=== PATIENT | male | born 1960 | race Caucasian/White ===

== ENCOUNTER 2019-05-31 08:38 | Outpatient (CLI) | payer MEDICARE ==
[~2019-05-31 08:38] MED LIST: FERUMOXYTOL (NON-ESRD) 510 MG/NS 100 ML IV PRN; NORMAL SALINE 250 ML IV PRN
[2019-05-31 09:33] VITALS: BP 128/69
== END 2019-05-31 10:02 | disposition home or self-care (01) ==
LOC: II 08:38 → 5TH 08:41 → II 10:02
PROVIDERS: ATTEND Internal Medicine Hematology & Oncology
PROC: 3E033GC Introduction of Other Therapeutic Substance into Peripheral Vein, Percutaneous Approach (ICD-10-PCS; principal; 2019-05-31)
DX: D50.9 Iron deficiency anemia, unspecified (principal); K90.9 Intestinal malabsorption, unspecified
CPT/HCPCS: 96365; Q0138; J7050

== ENCOUNTER 2019-06-07 08:34 | Outpatient (CLI) | payer MEDICARE ==
[2019-06-07 08:55] VITALS: BP 139/76
== END 2019-06-07 10:56 | disposition home or self-care (01) ==
LOC: II 08:34 → 5TH 08:36 → II 10:56
PROVIDERS: ATTEND Internal Medicine Hematology & Oncology
PROC: 3E033GC Introduction of Other Therapeutic Substance into Peripheral Vein, Percutaneous Approach (ICD-10-PCS; principal; 2019-06-07)
DX: D50.9 Iron deficiency anemia, unspecified (principal)
CPT/HCPCS: 96365; Q0138; J7050

== ENCOUNTER 2019-08-10 07:50 | Outpatient (CLI) | payer MEDICARE ==
[~2019-08-10 07:50] MED LIST changes: -FERUMOXYTOL (NON-ESRD) 510 MG/NS 100 ML IV PRN; +FERUMOXYTOL 510 MG in NORMAL SALINE 100 ML IV PRN
[2019-08-10 08:04] VITALS: BP 127/77
== END 2019-08-10 09:10 | disposition home or self-care (01) ==
LOC: II 07:50 → 5TH 07:54 → II 09:10
PROVIDERS: ATTEND Internal Medicine Hematology & Oncology
PROC: 3E033GC Introduction of Other Therapeutic Substance into Peripheral Vein, Percutaneous Approach (ICD-10-PCS; principal; 2019-08-10)
DX: D50.9 Iron deficiency anemia, unspecified (principal); K90.9 Intestinal malabsorption, unspecified
CPT/HCPCS: 96365; Q0139; J7050

== ENCOUNTER 2019-08-18 07:50 | Outpatient (CLI) | payer MEDICARE ==
[~2019-08-18 07:50] MED LIST changes: +FERUMOXYTOL (NON-ESRD) 510 MG/NS 100 ML IV PRN; -FERUMOXYTOL 510 MG in NORMAL SALINE 100 ML IV PRN
[2019-08-18 08:13] VITALS: BP 127/73
== END 2019-08-18 08:55 | disposition home or self-care (01) ==
LOC: II 07:50 → 5TH 07:54 → II 08:55
PROVIDERS: ATTEND Internal Medicine Hematology & Oncology
PROC: 3E033GC Introduction of Other Therapeutic Substance into Peripheral Vein, Percutaneous Approach (ICD-10-PCS; principal; 2019-08-18)
DX: D50.9 Iron deficiency anemia, unspecified (principal); K90.9 Intestinal malabsorption, unspecified
CPT/HCPCS: 96365; Q0138 ×2; J7050 ×2

== ENCOUNTER 2019-09-20 10:54 | Emergency (ER) | payer MEDICARE ==
--- NOTE | 2019-09-20 11:19 | ER Document Report ---
ED Medical Screen (RME) - General Chief Complaint: Dizziness Stated Complaint: DIZZINESS Time Seen by Provider: 09/20/19 11:14 Mode of Arrival: Ambulatory Information source: Patient Notes: 59-year-old male with history of iron deficiency and transfusions presents today with feelings of fatigue dizziness. He reports for the past 6 months he has had the symptoms. He has had 5 iron transfusions. He reports he will feel good afterwards for a week or 2 and then his symptoms returned. He reports last iron transfusion was 2 weeks ago on the fifth floor. He denies chest pain. Denies shortness of breath. Reports he just feels really dizzy and fatigued. I have greeted and performed a rapid initial assessment of this patient. A comprehensive ED assessment and evaluation of the patient, analysis of test results and completion of the medical decision making process will be conducted by additional ED providers. Dictation of this chart was performed using voice recognition software; therefore, there may be some unintended grammatical errors. TRAVEL OUTSIDE OF THE [place] IN LAST 30 DAYS: No - Related Data Allergies/Adverse Reactions: acetaminophen [From Percocet] Allergy (Verified 05/30/19 15:41) metaxalone [From Skelaxin] Allergy (Verified 05/30/19 15:41) oxycodone [From Percocet] Allergy (Verified 05/30/19 15:41) Past Medical History - Social History Chew tobacco use (# tins/day): No Frequency of alcohol use: None Drug Abuse: None
[2019-09-20 11:58] LABS: ABSOLUTE BASOPHILS # (AUTO) 0.1 10^3/uL (0.0-0.2); ABSOLUTE EOSINOPHILS # (AUTO) 0.4 10^3/uL (0.0-0.6); ABSOLUTE LYMPHOCYTES (AUTO) 1.4 10^3/uL (0.5-4.7); ABSOLUTE MONOCYTES (AUTO) 0.6 10^3/uL (0.1-1.4); ABSOLUTE NEUT (AUTO) 6.9 10^3/uL (1.7-8.2); BASOPHILS % (AUTO) 0.7 % (0-2); EOSINOPHILS % (AUTO) 4.5 % (0-6); HEMATOCRIT 46.5 % (37.9-51.0); HEMOGLOBIN 15.8 g/dL (13.5-17.0); LYMPHOCYTES % (AUTO) 15.3 % (13-45); MEAN CORPUSCULAR HEMOGLOBIN 30.9 pg (27.0-33.4); MEAN CORPUSCULAR HGB CONC 33.9 g/dL (32.0-36.0); MEAN CORPUSCULAR VOLUME 91 fl (80-97); MONOCYTES % (AUTO) 6.9 % (3-13); PLATELET COUNT 154 10^3/uL (150-450); RED BLOOD COUNT 5.12 10^6/uL (4.35-5.55); RED CELL DISTRIBUTION WIDTH 15.3 % (11.5-14.0); SEGMENTED NEUTROPHILS % (AUTO) 72.6 % (42-78); TOTAL CELLS COUNTED % (AUTO) 100 %; WHITE BLOOD COUNT 9.4 10^3/uL (4.0-10.5)
[2019-09-20 12:02] LABS: APPEARANCE,URINE CLEAR; BILIRUBIN,URINE NEGATIVE (NEGATIVE); COLOR,URINE YELLOW; GLUCOSE, URINE >=500 mg/dL (NEGATIVE); KETONES,URINE NEGATIVE (NEGATIVE); LEUKOCYTE ESTERASE,URINE NEGATIVE (NEGATIVE); NITRITE,URINE NEGATIVE (NEGATIVE); PROTEIN,URINE NEGATIVE (NEGATIVE); URINE SPECIFIC GRAVITY 1.026
[2019-09-20 12:03] LABS: ABSOLUTE RETICS # 0.096 10^6/uL (0.028-0.122); RETICULOCYTE COUNT (AUTO) 1.87 % (0.66-2.85)
[2019-09-20 12:21] LABS: ALBUMIN 4.4 g/dL (3.5-5.0); ALKALINE PHOSPHATASE 51 U/L (38-126); ANION GAP 11 (5-19); ASPARTATE AMINO TRANSFERASE 22 U/L (17-59); BILIRUBIN,DIRECT 0.1 mg/dL (0.0-0.4); BILIRUBIN,TOTAL 1.2 mg/dL (0.2-1.3); BLOOD UREA NITROGEN 18 mg/dL (7-20); CALCIUM 9.9 mg/dL (8.4-10.2); CARBON DIOXIDE 32 mmol/L (22-30); CHLORIDE 100 mmol/L (98-107); GLUCOSE 114 mg/dL (75-110); POTASSIUM 4.6 mmol/L (3.6-5.0); TOTAL PROTEIN 7.4 g/dL (6.3-8.2)
[2019-09-20 12:23] LABS: IRON(TIBC) 82.4 ug/dL (49-181)
--- NOTE | 2019-09-20 12:44 | EKG REPORT ---
SEVERITY:- NORMAL ECG - SINUS RHYTHM : Confirmed by: Dagoberto Rose MD 20-Sep-2019 12:43:50
[2019-09-20] MEDS ORDERED: MECLIZINE HCL 12.5 MG TABLET PO ONE (15:34)
--- NOTE | 2019-09-20 16:14 | ER Document Report ---
ED General - General Chief Complaint: Dizziness Stated Complaint: DIZZINESS Time Seen by Provider: 09/20/19 11:14 Primary Care Provider: DELMER BROWN MD [Primary Care Provider] - Follow up as needed Mode of Arrival: Ambulatory Notes: RME NOTE: 59-year-old male with history of iron deficiency and transfusions presents today with feelings of fatigue dizziness. He reports for the past 6 months he has had the symptoms. He has had 5 iron transfusions. He reports he will feel good afterwards for a week or 2 and then his symptoms returned. He reports last iron transfusion was 2 weeks ago on the fifth floor. He denies chest pain. Denies shortness of breath. Reports he just feels really dizzy and fatigued. MY HPI: Patient voices his dizziness is like he is "putting my head in a fish bowl." Patient's blood sugar was noted to be slightly decreased at today's visit. He was given something to eat and states he overall feels "better." Discussed with patient keeping a close eye on his sugars over the next couple of days. Patient also voices a history of vertigo. States he was given Valium in the past. Patient is denying any chest pain, lightheadedness, unilateral weakness, ge neralized weakness, shortness of breath. Patient voices "crickets in my ears." States from time to time he does have a "weird sensation in his ears that makes me dizzy." TRAVEL OUTSIDE OF THE [place] IN LAST 30 DAYS: No - Related Data Allergies/Adverse Reactions: acetaminophen [From Percocet] Allergy (Verified 05/30/19 15:41) metaxalone [From Skelaxin] Allergy (Verified 05/30/19 15:41) oxycodone [From Percocet] Allergy (Verified 05/30/19 15:41) IV contrast dye Allergy (Uncoded 09/20/19 15:05) Past Medical History - General Information source: Patient - Social History Smoking Status: Never Smoker Chew tobacco use (# tins/day): No Frequency of alcohol use: None Drug Abuse: None Family History: Reviewed & Not Pertinent Patient has suicidal ideation: No Patient has homicidal ideation: No - Past Medical History Cardiac Medical History: Reports: Hx Hypertension Endocrine Medical History: Reports: Hx Diabetes Mellitus Type 2 Past Surgical History: Reports: Hx Orthopedic Surgery, Hx Tonsillectomy Review of Systems - Review of Systems Constitutional: denies: Fever EENT: No symptoms reported Cardiovascular: See HPI Respiratory: See HPI Gastrointestinal: See HPI Genitourinary: No symptoms reported Male Genitourinary: No symptoms reported Musculoskeletal: No symptoms reported Skin: No symptoms reported Hematologic/Lymphatic: See HPI Neurological/Psychological: See HPI Physical Exam - Vital signs Vitals: Temp Pulse Resp BP Pulse Ox 98.0 F 96 18 138/74 H 95 09/20/19 11:07 09/20/19 11:07 09/20/19 11:07 09/20/19 11:07 09/20/19 11:07 - Notes Notes: GENERAL: Alert, interacts well. No acute distress. HEAD: Normocephalic, atraumatic. EYES: Pupils equal, round, and reactive to light. Extraocular movements intact. ENT: Oral mucosa moist, tongue midline. TMs intact, nonerythematous, nonbulging bilaterally. NECK: Full range of motion. Supple. Trachea midline. LUNGS: Clear to auscultation bilaterally, no wheezes, rales, or rhonchi. No respiratory distress. HEART: Regular rate and rhythm. No murmur ABDOMEN: Soft, non-tender. Non-distended. Bowel sounds present in all 4 quadrants. EXTREMITIES: Moves all 4 extremities spontaneously. No edema, normal radial and dorsalis pedis pulses bilaterally. No cyanosis. BACK: no cervical, thoracic, lumbar midline tenderness. No saddle anesthesia, normal distal neurovascular exam. NEUROLOGICAL: Alert and oriented x3. Normal speech. cranial nerves II through XII grossly intact PSYCH: Normal affect, normal mood. SKIN: Warm, dry, normal turgor. No rashes or lesions noted. Course - Re-evaluation Re-evalutation: 09/20/19 16:20 Rebekah-Hallpike maneuver noted nystagmus when patient's head was turned to the r ight. Patient voices "I feel horrible." Patient voices this movement did make him more dizzy. Discussed likely diagnosis of vertigo need to follow-up with Dr. Brown. Also discussed use of Antivert. Discussed continued evaluation of the patient's blood sugars until follow-up with Dr. Brown. Labs show no signs of anemia, Laboratory 09/20/19 09/20/19 09/20/19 11:35 11:35 11:35 WBC 9.4 RBC 5.12 Hgb 15.8 Hct 46.5 MCV 91 MCH 30.9 MCHC 33.9 RDW 15.3 H Plt Count 154 Lymph % (Auto) 15.3 Brown % (Auto) 6.9 Eos % (Auto) 4.5 Baso % (Auto) 0.7 Reticulocyte # 0.096 Absolute Neuts (auto) 6.9 Absolute Lymphs (auto) 1.4 Absolute Monos (auto) 0.6 Absolute Eos (auto) 0.4 Absolute Basos (auto) 0.1 Seg Neutrophils % 72.6 Retic Count (auto) 1.87 Sodium Potassium Chloride Carbon Dioxide Anion Gap BUN Creatinine Est GFR ( Amer) Est GFR (MDRD) Non-Af Glucose POC Glucose Calcium Iron 82.4 TIBC 332 % Saturation 25 Ferritin 41.70 Total Bilirubin Direct Bilirubin Neonat Total Bilirubin Neonat Direct Bilirubin Neonat Indirect Bili AST ALT Alkaline Phosphatase Total Protein Albumin Vitamin B12 673.0 Folate 13.10 Urine Color Urine Appearance Urine pH Ur Specific [place] Urine Protein Urine Glucose (UA) Urine Ketones Urine Blood Urine Nitrite Urine Bilirubin Urine Urobilinogen Ur Leukocyte Esterase Urine WBC (Auto) Urine RBC (Auto) Urine Mucus (Auto) Urine Ascorbic Acid 09/20/19 09/20/19 09/20/19 11:35 11:35 14:18 WBC RBC Hgb Hct MCV MCH MCHC RDW Plt Count Lymph % (Auto) Brown % (Auto) Eos % (Auto) Baso % (Auto) Reticulocyte # Absolute Neuts (auto) Absolute Lymphs (auto) Absolute Monos (auto) Absolute Eos (auto) Absolute Basos (auto) Seg Neutrophils % Retic Count (auto) Sodium 142.5 Potassium 4.6 Chloride 100 Carbon Dioxide 32 H Anion Gap 11 BUN 18 Creatinine 0.96 Est GFR ( Amer) > 60 Est GFR (MDRD) Non-Af > 60 Glucose 114 H POC Glucose 55 L Calcium 9.9 Iron TIBC % Saturation Ferritin Total Bilirubin 1.2 Direct Bilirubin 0.1 Neonat Total Bilirubin Not Reportable Neonat Direct Bilirubin Not Reportable Neonat Indirect Bili Not Reportable AST 22 ALT 16 Alkaline Phosphatase 51 Total Protein 7.4 Albumin 4.4 Vitamin B12 Folate Urine Color YELLOW Urine Appearance CLEAR Urine pH 7.0 Ur Specific [place] 1.026 Urine Protein NEGATIVE Urine Glucose (UA) >=500 H Urine Ketones NEGATIVE Urine Blood NEGATIVE Urine Nitrite NEGATIVE Urine Bilirubin NEGATIVE Urine Urobilinogen 4.0 H Ur Leukocyte Esterase NEGATIVE Urine WBC (Auto) 1 Urine RBC (Auto) 1 Urine Mucus (Auto) RARE Urine Ascorbic Acid NEGATIVE 09/20/19 14:50 WBC RBC Hgb Hct MCV MCH MCHC RDW Plt Count Lymph % (Auto) Brown % (Auto) Eos % (Auto) Baso % (Auto) Reticulocyte # Absolute Neuts (auto) Absolute Lymphs (auto) Absolute Monos (auto) Absolute Eos (auto) Absolute Basos (auto) Seg Neutrophils % Retic Count (auto) Sodium Potassium Chloride Carbon Dioxide Anion Gap BUN Creatinine Est GFR ( Amer) Est GFR (MDRD) Non-Af Glucose POC Glucose 81 Calcium Iron TIBC % Saturation Ferritin Total Bilirubin Direct Bilirubin Neonat Total Bilirubin Neonat Direct Bilirubin Neonat Indirect Bili AST ALT Alkaline Phosphatase Total Protein Albumin Vitamin B12 Folate Urine Color Urine Appearance Urine pH Ur Specific [place] Urine Protein Urine Glucose (UA) Urine Ketones Urine Blood Urine Nitrite Urine Bilirubin Urine Urobilinogen Ur Leukocyte Esterase Urine WBC (Auto) Urine RBC (Auto) Urine Mucus (Auto) Urine Ascorbic Acid 09/20/19 16:22 Patient stable for discharge - Vital Signs Vital signs: Temp Pulse Resp BP Pulse Ox 98.0 F 96 18 138/74 H 95 09/20/19 11:07 09/20/19 11:07 09/20/19 11:07 09/20/19 11:07 09/20/19 11:07 - Laboratory Result Diagrams: 09/20/19 11:35 09/20/19 11:35 Laboratory results interpreted by me: 09/20/19 09/20/19 09/20/19 11:35 11:35 11:35 RDW 15.3 H Carbon Dioxide 32 H Glucose 114 H POC Glucose Urine Glucose (UA) >=500 H Urine Urobilinogen 4.0 H 09/20/19 14:18 RDW Carbon Dioxide Glucose POC Glucose 55 L Urine Glucose (UA) Urine Urobilinogen Discharge - Discharge Clinical Impression: Vertigo, Hypoglycemia Condition: Stable Disposition: HOME, SELF-CARE Instructions: Vertigo ([facility]), Dizziness ([facility]), Meclizine ([facility]), Hypoglycemia ([facility]) Additional Instructions: As we discussed you have been seen and treated in the emergency department for potential vertigo. Please make sure he follow-up with Dr. Brown in the next 12 to 24 hours. Please also make sure you keep a close eye on your blood sugars. Please return to the emergency department for any concerns. Prescriptions: Meclizine HCl 25 mg PO BID PRN #[id number] tab.chew PRN Reason: Referrals: DELMER BROWN MD [Primary Care Provider] - Follow up as needed
[2019-09-20 16:59] VITALS: BP 130/80
== END 2019-09-20 16:45 | disposition home or self-care (01) ==
LOC: ER 10:54
DX: R42 Dizziness and giddiness (principal); E11.649 Type 2 diabetes mellitus with hypoglycemia without coma; R53.83 Other fatigue; I10 Essential (primary) hypertension; Z88.5 Allergy status to narcotic agent; Z88.8 Allergy status to other drugs, medicaments and biological substances; Z91.041 Radiographic dye allergy status; Z86.2 Personal history of diseases of the blood and blood-forming organs and certain disorders involving the immune mechanism
CPT/HCPCS: 93005; 36415; 82962; 82607; 82728; 82746; 83540; 83550; 85025; 85045; 80053; 81001; 93010; A9270; 99284; J3490

== ENCOUNTER 2019-10-17 08:05 | Emergency (ER) | payer MEDICARE ==
--- NOTE | 2019-10-17 08:30 | ER Document Report ---
ED Fall - General Chief Complaint: Fall Injury Stated Complaint: FALL/LEFT ARM PAIN Time Seen by Provider: 10/17/19 08:21 Primary Care Provider: DELMER BROWN MD [Primary Care Provider] - Follow up as needed Notes: 59-year-old male who fell in his garden a week ago. He fell onto his left side he denies loss of consciousness states he simply lost his balance on the concrete. States his left shoulder has been bothering him for the last week he had hoped it would gone away he is been taking Motrin and Tylenol but still having mild to moderate achy pain worse with movement. He denies any numbness or tingling in his hand. Denies chest pain denies shortness of breath. Denies headache or blurred vision. Denies extremity numbness tingling or weakness. TRAVEL OUTSIDE OF THE [place] IN LAST 30 DAYS: No - Related data Allergies/Adverse Reactions: acetaminophen [From Percocet] Allergy (Verified 05/30/19 15:41) metaxalone [From Skelaxin] Allergy (Verified 05/30/19 15:41) oxycodone [From Percocet] Allergy (Verified 05/30/19 15:41) IV contrast dye Allergy (Uncoded 09/20/19 15:05) Past Medical History - Social History Smoking Status: Former Smoker Family History: Reviewed & Not Pertinent Patient has suicidal ideation: No Patient has homicidal ideation: No - Past Medical History Cardiac Medical History: Reports: Hx Hypertension Endocrine Medical History: Reports: Hx Diabetes Mellitus Type 2 Past Surgical History: Reports: Hx Orthopedic Surgery, Hx Tonsillectomy Review of Systems - Review of Systems Constitutional: denies: Chills, Fever Musculoskeletal: Joint pain -: Yes All other systems reviewed and negative Physical Exam - Vital signs Vitals: Temp Pulse BP Pulse Ox 97.5 F 91 164/90 H 96 10/17/19 08:08 10/17/19 08:08 10/17/19 08:08 10/17/19 08:08 - Notes Notes: GENERAL_APPEARANCE: well_nourished, alert, cooperative, no_acute_distress, no_obvious_discomfort. VITALS: reviewed, see vital signs table. HEAD: no_swelling\tenderness on the head. EYES: PERRL, EOMI, conjunctiva_clear. NOSE: no_nasal_discharge. MOUTH: (-)decreased moisture. THROAT: no_tonsilar_inflammation, no_airway_obstruction. no_lymphadenopathy NECK: supple, no_neck_tenderness, (-)thyromegaly. BACK: no_back_tenderness. CHEST_WALL: no_chest_tenderness. LUNGS: no_wheezing, no_rales, no_rhonchi, (-)accessory muscle use, good air exchange bilateral. HEART: normal_rate, normal_rhythm, normal_S1, normal_S2, (-)S3, (-)S4, no_murmur, no_rub. ABDOMEN: soft, no_abd_tenderness, (-)guarding, (-)rebound, no_organomegaly, no_abd_masses. EXTREMITIES: Pain at the left shoulder mild swelling and bruising, pulses intact left hand, brisk capillary refill of fingertips no_edema. SKIN: warm, dry, good_color, no_rash. MENTAL_STATUS: speech_clear, oriented_X_3, normal_affect, responds_appropriately to questions. NEURO: Neg Motor or Sensory Deficits on exam, CN 2-12 intact, DTR 2+ symmetric x 4, No cerbellar signs Course - Re-evaluation Re-evalutation: 10/17/19 08:30 Elderly male who fell in his garden complains of left shoulder pain we will get an x-ray to assess for humeral head fractures. He has good pulse motor or sensory distal. Denies any other complaints no chest pain or shortness of breath no syncope no head injury. No neck pain. 10/17/19 09:55 Went back and palpated the area of the AC joint. And there is tenderness there there appears to be a space on the x-ray that was not necessarily commented on by radiology. I stated there is some arthropathy there but the space looks to be about 1/4 inch. This seems to be more than I would expect. He is tender there. We will place the patient in a sling and have him follow-up with orthopedics for AC separation. There is no fractures noted [id number] pain medicine as needed - Vital Signs Vital signs: Temp Pulse Resp BP Pulse Ox 97.5 F 91 164/90 H 96 10/17/19 08:08 10/17/19 08:08 10/17/19 08:08 10/17/19 08:08 - Diagnostic Test Radiology reviewed: Image reviewed, Reports reviewed Radiology results interpreted by me: 10/17/19 09:54 Shoulder X-Ray 10/17/19 00:00 IMPRESSION: No acute bony abnormality. Mild acromioclavicular Osteoarthropathy. I have reviewed the x-ray myself looks to be a space between the acromioclavicular joint this may be a mild separation. Discharge - Discharge Clinical Impression: AC separation Qualifiers: Encounter type: initial encounter Laterality: left Qualified Code(s): S43.102A - Unspecified dislocation of left acromioclavicular joint, initial encounter Condition: Good Disposition: HOME, SELF-CARE Instructions: Shoulder Injury ([facility]) Additional Instructions: Call Dr. Dowling for follow-up appointment Referrals: DELMER BROWN MD [Primary Care Provider] - Follow up as needed ALONA DOWLING MD [ACTIVE STAFF] - Follow up as needed
--- NOTE | 2019-10-17 09:02 | RADIOLOGY REPORT (SQ) ---
EXAM DESCRIPTION: SHOULDER LEFT 2 OR MORE VIEWS COMPLETED DATE/TIME: 10/17/2019 8:41 am REASON FOR STUDY: Fall onto shoulder COMPARISON: None. NUMBER OF VIEWS: Three views. TECHNIQUE: Internal rotation, external rotation, and Y view images acquired of the left shoulder. LIMITATIONS: None. FINDINGS: MINERALIZATION: Normal. BONES: No acute fracture. No worrisome bone lesions. JOINTS: No dislocation. Acromioclavicular osteoarthropathy mild superior projecting osteophytes. VISUALIZED LUNGS AND RIBS: No pneumothorax. No rib fracture. SOFT TISSUES: No radiopaque foreign body. OTHER: No other significant finding. IMPRESSION: No acute bony abnormality. Mild acromioclavicular Osteoarthropathy. TECHNICAL DOCUMENTATION: JOB ID: [id number] [employer]- All Rights Reserved Reading location - IP/workstation name: [email or web address]
[2019-10-17] MEDS ORDERED: IBUPROFEN 600 MG TABLET PO ONE (10:04)
[2019-10-17 10:05] VITALS: BP 134/64
== END 2019-10-17 10:10 | disposition home or self-care (01) ==
LOC: ER 08:05
DX: S43.102A Unspecified dislocation of left acromioclavicular joint, initial encounter (principal); I10 Essential (primary) hypertension; W18.30XA Fall on same level, unspecified, initial encounter; Y92.007 Garden or yard of unspecified non-institutional (private) residence as the place of occurrence of the external cause; E11.9 Type 2 diabetes mellitus without complications; Z88.6 Allergy status to analgesic agent; Z91.040 Latex allergy status
CPT/HCPCS: 99283; 73030; L3650; A9270

== ENCOUNTER → 2019-10-30 | Outpatient (CLI) | payer MEDICARE ==
--- NOTE | 2019-10-30 11:00 | RADIOLOGY REPORT (SQ) ---
EXAM DESCRIPTION: ELBOW LEFT OVER 2 VIEWS COMPLETED DATE/TIME: 10/30/2019 9:06 am REASON FOR STUDY: M25.522 PAIN IN LEFT ELBOW M25.512 PAIN IN LEFT SHOULDER M25.522 PAIN IN LEFT EL BOW COMPARISON: None. NUMBER OF VIEWS: Four view. TECHNIQUE: AP, lateral, and both oblique radiographic images acquired of the left elbow. LIMITATIONS: None. FINDINGS: MINERALIZATION: Normal. BONES: No acute fracture or dislocation. No worrisome bone lesions. Osteophytes anteriorly. JOINT: No effusions. SOFT TISSUES: No soft tissue swelling. No foreign body. OTHER: No other significant finding. IMPRESSION: Degenerative changes. No acute findings. TECHNICAL DOCUMENTATION: JOB ID: [id number] [employer]- All Rights Reserved. Reading location - IP/workstation name: [email or web address]
--- NOTE | 2019-10-30 11:01 | RADIOLOGY REPORT (SQ) ---
EXAM DESCRIPTION: SHOULDER LEFT 2 OR MORE VIEWS COMPLETED DATE/TIME: 10/30/2019 9:06 am REASON FOR STUDY: M25.512 PAIN IN LEFT SHOULDER M25.512 PAIN IN LEFT SHOULDER M25.522 PAIN IN LEFT ELBOW COMPARISON: None. NUMBER OF VIEWS: Three views. TECHNIQUE: Internal rotation, external rotation, and Y view images acquired of the left shoulder. LIMITATIONS: None. FINDINGS: MINERALIZATION: Normal. BONES: No acute fracture. No worrisome bone lesions. JOINTS: No dislocation. VISUALIZED LUNGS AND RIBS: No pneumothorax. No rib fracture. SOFT TISSUES: No radiopaque foreign body. OTHER: No other significant finding. IMPRESSION: NEGATIVE STUDY OF THE LEFT SHOULDER. NO RADIOGRAPHIC EVIDENCE OF ACUTE INJURY. TECHNICAL DOCUMENTATION: JOB ID: [id number] [employer]- All Rights Reserved Reading location - IP/workstation name: [email or web address]
== END ==
LOC: RAD 08:28
PROVIDERS: ATTEND Family Medicine
DX: M25.512 Pain in left shoulder (principal); M25.522 Pain in left elbow

== ENCOUNTER 2020-07-10 08:48 | Outpatient (CLI) | payer MEDICARE ==
[2020-07-10 08:58] VITALS: BP 125/82
[2020-07-10] MEDS ORDERED: NORMAL SALINE 250 ML IV PRN (09:30)
[2020-07-10] MEDS ORDERED: FERUMOXYTOL 510 MG in NORMAL SALINE 100 ML IV PRN (09:30)
== END 2020-07-10 10:39 | disposition home or self-care (01) ==
LOC: II 08:48 → 5TH 08:51 → II 10:39
PROVIDERS: ATTEND Internal Medicine Hematology & Oncology
DX: D50.9 Iron deficiency anemia, unspecified (principal); K90.9 Intestinal malabsorption, unspecified
CPT/HCPCS: 96365; Q0138; J7050

== ENCOUNTER 2020-07-17 08:33 | Outpatient (CLI) | payer MEDICARE ==
[2020-07-17 09:32] VITALS: BP 120/71
== END 2020-07-17 09:30 | disposition home or self-care (01) ==
LOC: II 08:33 → 5TH 08:35 → II 09:30
PROVIDERS: ATTEND Internal Medicine Hematology & Oncology
DX: D50.9 Iron deficiency anemia, unspecified (principal); K90.9 Intestinal malabsorption, unspecified
CPT/HCPCS: 96365; Q0138; J7050

== ENCOUNTER 2020-09-19 10:30 | Day surgery (SDC) | payer MEDICARE ==
[2020-09-19] MEDS ORDERED: PROPOFOL INJ 200 MG/20 ML VIAL IV ONE ×3 (11:02→12:32)
[2020-09-19 13:09] VITALS: BP 126/80
--- NOTE | 2020-09-19 14:13 | Operative Report ---
Operative Report DATE OF SURGERY: 09/19/20 Operative Report: The risk, benefits and alternatives of the procedure including the risks of bleeding, perforation requiring surgery have been explained to the patient in detail and informed consent has been obtained. Patient is placed in the left, lateral decubital position. Timeout was called. Propofol medication is administered. Rectal examination is done which did not reveal any masses, tears or fissures. An Olympus videoscope was introduced into the patient's rectum and subsequently advanced all the way to the cecum unfortunately the prep was not good. The mucosa was covered with fecal material and irrigation did not help to uncover for good visualization. The scope was then sequentially pulled back via the various segments of the colon including the ascending colon, hepatic flexure, transverse colon, splenic flexure, descending colon finally into the rectosigmoid portions of the colon. Retroflexion maneuver is performed. The risks benefits and alternatives of the procedure explained to the patient in detail and informed consent is obtained.A GIF Olympus video scope was inserted into the patient's mouth and hypopharynx ,the esophagus is identified intubated and insufflated, the scope was then advanced through the esophagus stomach and duodenum ,retroflexion maneuver is done, the esophagus stomach and first and second portions of the duodenum examined PREOPERATIVE DIAGNOSIS: Iron deficiency anemia. Occasional bright red blood per rectum. Positive Cologuard. History of polyp in the past. Gastroesophageal reflux disease POSTOPERATIVE DIAGNOSIS: No AVMs noted in the gastric or duodenal cavity. Mild gastritis status post biopsy. Due to the prep unclear if there are any AVMs in the colon that could be contributing to his iron deficiency anemia. Ascending colon lesion, status post biopsy. This is just proximal to the ileocecal valve. Multiple colon polyps removed throughout the colon. Inadequate prep. Surveillance colonoscopy with alternative prep 6 months depending on pathology of the lesion OPERATION: Colonoscopy with snare polypectomy. Colonoscopy with biopsy. EGD with biopsy SURGEON: MINERVA TSAI ANESTHESIA: LMAC TISSUE REMOVED OR ALTERED: As noted above. COMPLICATIONS: None. ESTIMATED BLOOD LOSS: None. INTRAOPERATIVE FINDINGS: As noted above. PROCEDURE: Patient tolerated the procedure well. No immediate postprocedure complications are noted. Patient is discharged in good condition. Discharge date 09/19/2020. Discharge diet: Regular. Discharge activity: Regular. 2 to 3-week follow-up to discuss findings. Patient is instructed call the office or proceed to the emergency room should there be any further problems or questions. Wait on the pathology. Likely if ascending colon lesion comes back showing adenomatous tissue he may very well need surgery given the fact that it is too large to remove Surveillance colonoscopy in 6 months Alternative prep to be used at that point in time. We will follow-up on pathology
== END 2020-09-19 13:15 | disposition home or self-care (01) ==
LOC: END 10:30
PROVIDERS: ATTEND Internal Medicine Gastroenterology
DX: K29.50 Unspecified chronic gastritis without bleeding (principal); K52.9 Noninfective gastroenteritis and colitis, unspecified; K62.89 Other specified diseases of anus and rectum; D12.3 Benign neoplasm of transverse colon; K92.1 Melena; D50.0 Iron deficiency anemia secondary to blood loss (chronic); E11.9 Type 2 diabetes mellitus without complications; E78.5 Hyperlipidemia, unspecified; E55.9 Vitamin D deficiency, unspecified; Z86.010 Personal history of colon polyps; Z88.6 Allergy status to analgesic agent; Z68.37 Body mass index [BMI] 37.0-37.9, adult; Z79.4 Long term (current) use of insulin; Z79.82 Long term (current) use of aspirin; Z03.818 Encounter for observation for suspected exposure to other biological agents ruled out
CPT/HCPCS: 43239; 45380; 45385; 82962; 88342 ×2; 88305 ×2; 00813; U0003; J2704; C9803; 813; 87635

== ENCOUNTER 2020-11-25 06:49 | Day surgery (SDC) | payer MEDICARE ==
[2020-11-25] MEDS ORDERED: PROPOFOL INJ 200 MG/20 ML VIAL IV ONE ×2 (07:55→10:03)
[2020-11-25 11:04] VITALS: BP 133/79
--- NOTE | 2020-11-25 12:16 | Operative Report ---
Operative Report DATE OF SURGERY: 11/25/20 Operative Report: The risk, benefits and alternatives of the procedure including the risk of bleeding, perforation requiring surgery have been explained to the patient in detail and informed consent has been obtained. Patient is taken back to the endoscopy suite and placed in left, lateral decubital position. Timeout was called. Propofol medication is administered. Rectal examination is done which did not reveal any masses, tears or fissures. An Olympus videoscope was introduced into the patient's rectum. The scope was then carefully advanced all the way to the cecum. The cecum was identified by the usual anatomical landmarks including the ileocecal valve as well as the appendiceal office. Photodocumentation is obtained. Scope was then sequentially pulled back via the various segments of the colon including the ascending colon, hepatic flexure, transverse colon, splenic flexure, descending colon and finally into the rectosigmoid portions of the colon. Retroflexion maneuver is performed. PREOPERATIVE DIAGNOSIS: Personal history of polyps POSTOPERATIVE DIAGNOSIS: Thickening of the ileocecal valve status post biopsy. 2 small ascending colon polyps that were removed via snare polypectomy only one of them is retrieved. Transverse colon polyp was removed via snare polypectomy and retrieved it is of a sessile nature., This is likely the previous polyp that was noted on colonoscopy. 2 sigmoid colon polyps then removed various snare polypectomy and retrieved. A singular pedunculated splenic flexure polyp removed via snare polypectomy and retrieved. Internal hemorrhoids OPERATION: Colonoscopy with snare polypectomy SURGEON: MINERVA TSAI ANESTHESIA: LMAC TISSUE REMOVED OR ALTERED: As noted above. COMPLICATIONS: None. ESTIMATED BLOOD LOSS: None. INTRAOPERATIVE FINDINGS: As noted above. PROCEDURE: Patient tolerated the procedure well. No immediate postprocedure complications are noted. Patient is discharged in good condition. Discharge date 11/25/2020 Discharge diet: Regular. Discharge activity: Regular. 2 to 3-week follow-up to discuss findings. Patient is instructed call the office or proceed to the emergency room should there be any further problems or questions. Wait on the pathology. Depending on the pathology 1 to 3-year surveillance colonoscopy.
== END 2020-11-25 11:08 | disposition home or self-care (01) ==
LOC: OROUT 06:49
PROVIDERS: ATTEND Internal Medicine Gastroenterology
DX: D12.3 Benign neoplasm of transverse colon (principal); K64.8 Other hemorrhoids; E11.9 Type 2 diabetes mellitus without complications; Z86.010 Personal history of colon polyps; Z01.812 Encounter for preprocedural laboratory examination; Z20.828 Contact with and (suspected) exposure to other viral communicable diseases; E66.9 Obesity, unspecified; E78.5 Hyperlipidemia, unspecified; E55.9 Vitamin D deficiency, unspecified; Z79.899 Other long term (current) drug therapy; Z79.82 Long term (current) use of aspirin; Z79.84 Long term (current) use of oral hypoglycemic drugs; Z68.35 Body mass index [BMI] 35.0-35.9, adult
CPT/HCPCS: 45380; 45385; 82962; 88305 ×2; 00812; U0003; J2704; C9803; 812; 87635

== ENCOUNTER → 2020-12-16 | Outpatient (CLI) | payer MEDICARE ==
[~2020-12-16] MED LIST changes: +COVID-19 VACCINE (PFIZER)/PF 30 MCG/0.3 ML VIAL IM ONE; +EPINEPHRINE INJ/PF 1 MG/1 ML AMPULE IM PRN; -FERUMOXYTOL (NON-ESRD) 510 MG/NS 100 ML IV PRN; -NORMAL SALINE 250 ML IV PRN
== END ==
LOC: EMPHEALTH 13:38
PROVIDERS: ATTEND Internal Medicine
DX: Z23 Encounter for immunization (principal)
CPT/HCPCS: 91300